=== PATIENT | male | born 1965 | race Caucasian/White ===

== ENCOUNTER 2021-07-05 07:20 | Inpatient (IN) | payer SELFPAY ==
[~2021-07-05] VITALS: Ht 170.2 cm; Wt 87.1 kg
[2021-07-05 07:27] VITALS: BP 155/120
[2021-07-05] MEDS ORDERED: KETOROLAC 30 MG/ML VIAL IM ONE (07:55)
[2021-07-05 10:16] LABS: HEMATOCRIT 49.6 % (36-52); HEMOGLOBIN 16.8 g/dL (12.0-18.0); MEAN CORPUSCULAR HEMOGLOBIN 31 pg (27-31); MEAN CORPUSCULAR HGB CONC 34 g/dL (33-37); MEAN CORPUSCULAR VOLUME 90.7 fL (80-94); PLATELET COUNT (AUTO) 337 K/uL (140-450); RED BLOOD CELL COUNT(AUTO) 5.47 MIL/uL (4.20-6.10); RED CELL DISTRIBUTION WIDTH 14.9 % (11.6-13.7); WHITE BLOOD COUNT (AUTO) 19.7 K/uL (4.8-10.8)
[2021-07-05 10:17] LABS: ALBUMIN 4.3 g/dL (3.4-5.0); ANION GAP 14.6 (8-16); CARBON DIOXIDE 24.7 mmol/L (21-32); POTASSIUM 4.3 mmol/L (3.5-5.1); TOTAL BILIRUBIN 1.6 mg/dL (0.0-1.0)
[2021-07-05 10:27] LABS: LYMPHOCYTES % (MANUAL) 5 % (20-46); MONOCYTES % (MANUAL) 5 % (5-12)
[2021-07-05 10:49] LABS: APPEARANCE,URINE CLOUDY (CLEAR); BILIRUBIN,URINE 1+ (NEGATIVE); BLOOD, URINE 2+ (NEGATIVE); COLOR,URINE YELLOW (YELLOW); LEUKOCYTE ESTERASE ,URINE NEGATIVE (NEGATIVE); NITRITE, URINE POSITIVE (NEGATIVE); PH,URINE 5.5 (5.0-9.0); UGLUCOSE NEGATIVE (NEGATIVE)
[2021-07-05 11:02] LABS: URINE AMORPHOUS URATE 2+ /HPF (None Seen); WBC,URINE 0-5 /HPF (0-5)
[2021-07-05] MEDS ORDERED: NACL 0.9% 2,000 ML IV ONE (11:10)
[2021-07-05] MEDS ORDERED: metroNIDAZOLE 500 MG/NS PREMIX 100 ML IV ONE ×2 (11:50→17:52)
[2021-07-05] MEDS ORDERED: NACL 0.9% 1,000 ML IV ONE (11:50)
[2021-07-05] MEDS ORDERED: ACETAMINOPHEN 325 MG TAB PO PRN (13:10)
[2021-07-05] MEDS ORDERED: ZOLPIDEM 5 MG TAB PO PRN (13:10)
[2021-07-05] MEDS ORDERED: DOCUSATE SODIUM 100 MG GELCAP PO PRN (13:10)
[2021-07-05] MEDS ORDERED: ONDANSETRON 4 MG/2 ML VIAL IM/IVP PRN (13:10)
[2021-07-05] MEDS ORDERED: POTASSIUM CHLORIDE 10 MEQ TABER PO PRN (13:10)
[2021-07-05] MEDS ORDERED: guaiFENesin DM 200/20 MG-10 ML 10 ML UDC PO PRN (13:10)
[2021-07-05] MEDS ORDERED: DEXT 5% /NACL 0.9% 1,000 ML IV SCH (13:10)
[2021-07-05 14:27] LABS: CHOL/HDL RATIO 2.3 (1-4.5); MAGNESIUM 2.1 mg/dL (1.8-2.4); PHOSPHORUS 3.6 mg/dL (2.5-4.9); THYROID STIMULATING HORMONE 1.36 uIU/mL (0.34-3.74)
[2021-07-05 15:41] LABS: FREE T4 (FREE THYROXINE) 0.99 ng/dL (0.76-1.46)
[2021-07-05] MEDS ORDERED: MORPHINE SULFATE 4 MG/ML SYR IVP ONE (16:00)
[2021-07-05] MEDS ORDERED: cefTRIAXone 1,000 MG VIAL ONE (16:17)
[2021-07-05] MEDS: HYDROcodone/APAP 7.5/325 MG 1 TAB PO PRN (17:57)
--- NOTE | 2021-07-05 19:20 | NUR ---
REPORT RECIEVED FROM CANDIE HERRMANN
--- NOTE | 2021-07-05 19:30 | NUR ---
55 Y/O MALE C/O SHARP RLQ PAIN X3 DAYS. DENIES DIARRHEA; SKIN IS PINK/WARM/DRY; AAOX4 WITH EVEN AND STEADY GAIT; LUNGS CLEAR BL; HR EVEN AND REGULAR; PT DENIES ANY FEVER, CP, SOB, OR COUGH AT THIS TIME; PATIENT STATES PAIN OF 8/10 AT THIS TIME; VSS; PATIENT POSITIONED FOR COMFORT; HOB ELEVATED; BEDRAILS UP X2; BED DOWN. ER MD MADE AWARE OF PT STATUS. NO PMH NKA DENIES MEDS
[2021-07-05 20:24] LABS: PROTHROMBIN TIME 10.5 secs (10.8-13.4)
[2021-07-05] MEDS: POLYETHYLENE GLYCOL 17 GM/PKT PO SCH (20:27)
--- NOTE | 2021-07-05 21:48 | NUR ---
RECIEVED CALL FROM RAVINDRA IN NUCLEAR [facility], PT IS SCHEDULED FOR HYDA SCAN APPROXIMATELY 0730 07/06/21. NPO AFTER MIDNIGHT; NO OPIATE 4 HRS PRIOR TO SCAN (0230). POC CELL
[2021-07-05] MEDS: metroNIDAZOLE 500 MG/NS PREMIX 100 ML IV SCH (22:23)
[2021-07-05] MEDS: SENNA 8.6 MG TAB PO SCH (22:24)
--- NOTE | 2021-07-06 01:47 | NUR ---
D5 1/2NS W/ KCl 10 MEQ HELD. LAST POTASSIUM VALUE 4.3 @0915; NO CURRENT VALUE, LABS NOTIFIED, NO REPLY AT THIS TIME.
[2021-07-06] MEDS: metroNIDAZOLE 500 MG/NS PREMIX 100 ML IV SCH ×3 (06:53→21:30)
--- NOTE | 2021-07-06 07:26 | NUR ---
REPORT GIVEN TO CANDIE HERRMANN
--- NOTE | 2021-07-06 07:28 | NUR ---
RECEIVED REPORT FROM CASI, MAINSPRING FORMER ARBOR END OF CARE AT THIS TIME.
--- NOTE | 2021-07-06 07:29 | NUR ---
PT TAKEN TO SCAN AT THIS TIME.
--- NOTE | 2021-07-06 07:29 | NUR ---
PT TAKEN TO NUCLEAR MED FOR HIDA SCAN
--- NOTE | 2021-07-06 07:50 | NUR ---
SPOKE WITH RAVINDRA, FOR MORPHINE 2MG IVP ONE TIME ORDER FOR PENDING SCAN TO HELP VISUALIZE GALLBLADDER. DR. ATWOOD PAGED.
[2021-07-06] MEDS ORDERED: MORPHINE SULFATE 2 MG/ML SYR IVP ONE (08:20)
[2021-07-06] MEDS ORDERED: MORPHINE SULFATE 2 MG/ML SYR ONE (08:22)
--- NOTE | 2021-07-06 08:39 | NUR ---
GAVE MORPHINE 2MG IVP ONE TIME PER DR. ATWOOD.
--- NOTE | 2021-07-06 09:10 | NUR ---
PT TAKEN TO ER BED 13 VIA W/C.
--- NOTE | 2021-07-06 09:22 | NUR ---
PATIENT HAS BEEN SCREENED AND CATEGORIZED MODERATE NUTRITION RISK. PATIENT WILL BE SEEN WITHIN 3-5 DAYS OF ADMISSION. 07/08/21-07/10/21 REVIEWED BY KY GONZ[address]
[2021-07-06] MEDS ORDERED: cefTRIAXone 1,000 MG VIAL ONE (09:30)
[2021-07-06 09:36] LABS: BASOPHILS # (AUTO) 0.1 K/uL (0.00-0.22); BASOPHILS % (AUTO) 0.3 % (0.0-2.0); EOSINOPHILS % (AUTO) 0.2 % (0.0-4.0); HEMATOCRIT 44.1 % (36-52); HEMOGLOBIN 14.8 g/dL (12.0-18.0); LYMPHOCYTES % (AUTO) 4.4 % (20.5-51.1); MEAN CORPUSCULAR HEMOGLOBIN 31 pg (27-31); MEAN CORPUSCULAR HGB CONC 34 g/dL (33-37); MEAN CORPUSCULAR VOLUME 91.5 fL (80-94); MONOCYTES # (AUTO) 1.6 K/uL (0.8-1.0); MONOCYTES % (AUTO) 6.8 % (1.7-9.3); NEUTROPHILS # (AUTO) 20.9 K/uL (1.8-7.7); NEUTROPHILS % (AUTO) 88.3 % (42.2-75.2); PLATELET COUNT (AUTO) 272 K/uL (140-450); RED BLOOD CELL COUNT(AUTO) 4.82 MIL/uL (4.20-6.10); RED CELL DISTRIBUTION WIDTH 14.9 % (11.6-13.7); WHITE BLOOD COUNT (AUTO) 23.7 K/uL (4.8-10.8)
[2021-07-06] MEDS: POLYETHYLENE GLYCOL 17 GM/PKT PO SCH ×3 (09:39→16:18)
[2021-07-06] MEDS: SENNA 8.6 MG TAB PO SCH ×3 (09:39→16:18)
[2021-07-06] MEDS: PANTOPRAZOLE 40 MG INJ VIAL IVP SCH (09:40)
[2021-07-06 09:58] LABS: CREATININE 0.8 mg/dL (0.6-1.3)
[2021-07-06] MEDS ORDERED: DILTIAZEM 25 MG/5 ML VIAL IVP ONE ×2 (10:00)
[2021-07-06] MEDS ORDERED: ADENOSINE 6 MG/2 ML VIAL IVP ONE ×2 (10:00)
--- NOTE | 2021-07-06 10:09 | NUR ---
GAVE REPORT TO MONTEZ SARAVIA FOR PENDING ADMISSION TO [facility].
--- NOTE | 2021-07-06 10:10 | NUR ---
Patient will be admitted to care of DR. ATWOOD. Admited to TELE. Will go to room 105A. Belongings list completed. Report to MONTEZ SARAVIA.
[2021-07-06 10:30] VITALS: BP 133/76
--- NOTE | 2021-07-06 10:30 | NUR ---
PT ARRIVED TO UNIT VIA GURNEY. AMBULATED TO BED STEADILY. A&OX4. ON RA WITH BREATHING UNLABORED. PT DENIES PAIN. SKIN IS WARM, DRY, AND INTACT. IV IS IN THE LEFT AC 20 GAUGE SALINE LOCKED. PT IS STABLE. PLAN OF CARE DISCUSSED.
[2021-07-06] MEDS: HYDROcodone/APAP 7.5/325 MG 1 TAB PO PRN ×2 (10:50→21:34)
[2021-07-06] MEDS: POTASSIUM CHL 10 MEQ/D5-1/2NS 1,000 ML IV SCH ×3 (10:50→15:09)
--- NOTE | 2021-07-06 10:52 | NUR ---
PT WAS GIVEN NORCO FOR PAIN. PAIN WAS STATED AT A 6/10 IN THE RIGHT UPPER QUAD. WILL CONTINUE TO MONITOR FOR PAIN.
[2021-07-06 12:00] VITALS: BP 125/87
--- NOTE | 2021-07-06 13:00 | NUR ---
, DARREL, CALLED AND RECEIVED UPDATE ON PT. SHE ALSO SPOKE WITH PT ON THE PHONE. PT IS STABLE AT THIS TIME. NO DISTRESS NOTED.
--- NOTE | 2021-07-06 15:00 | NUR ---
ROUNDED ON PT. HE IS AWAKE AND ANSWERING QUESTIONS APPROPRIATELY. DENIES PAIN. PT HAS NOT HAD A BM YET. DENIES NAUSEA/VOMITING. PT IS STABLE.
[2021-07-06 16:00] VITALS: BP 145/94
--- NOTE | 2021-07-06 17:23 | NUR ---
PT IS ASLEEP. NO DISTRESS NOTED. IV FLUIDS ARE INFUSING ORDERED. WILL CONTINUE TO MONITOR.
--- NOTE | 2021-07-06 19:30 | NUR ---
ENDORSED PT TO CABLE MECHANIC NURSE FOR CONTINUITY OF CARE. PT IS STABLE. PLAN OF CARE DISCUSSED.
[2021-07-06 20:00] VITALS: BP 140/88
[2021-07-07] VITALS: BP 142/84
[2021-07-07 04:00] VITALS: BP 138/78
[2021-07-07] MEDS: POTASSIUM CHL 10 MEQ/D5-1/2NS 1,000 ML IV SCH ×2 (06:56→16:54)
[2021-07-07] MEDS: metroNIDAZOLE 500 MG/NS PREMIX 100 ML IV SCH ×3 (06:57→20:45)
--- NOTE | 2021-07-07 07:15 | NUR ---
RECEIVED BEDSIDE REPORT FROM MANAGER EMERGENCY NURSE FOR CONTINUITY OF CARE. PT IS AWAKE AND ALERT. A&OX4. ON RA WITH BREATHING UNLABORED. AMBULATORY INDEPENDENTLY. SKIN IS WARM, DRY, AND INTACT. IV IS IN THE LEFT AC 20 GAUGE RUNNING FLUIDS ORDERED. PT IS STABLE. PLAN OF CARE DISCUSSED. PT DENIES PAIN.
[2021-07-07 07:34] LABS: BASOPHILS # (AUTO) 0.1 K/uL (0.00-0.22); BASOPHILS % (AUTO) 0.3 % (0.0-2.0); EOSINOPHILS # (AUTO) 0.2 K/uL (0-0.4); EOSINOPHILS % (AUTO) 0.9 % (0.0-4.0); HEMOGLOBIN 13.5 g/dL (12.0-18.0); LYMPHOCYTES # (AUTO) 1.1 K/uL (2.0-11.5); MEAN CORPUSCULAR HEMOGLOBIN 30 pg (27-31); MEAN CORPUSCULAR HGB CONC 33 g/dL (33-37); MEAN CORPUSCULAR VOLUME 92.1 fL (80-94); MONOCYTES # (AUTO) 1.2 K/uL (0.8-1.0); MONOCYTES % (AUTO) 6.7 % (1.7-9.3); NEUTROPHILS # (AUTO) 15.4 K/uL (1.8-7.7); NEUTROPHILS % (AUTO) 86.1 % (42.2-75.2); PLATELET COUNT (AUTO) 280 K/uL (140-450); RED BLOOD CELL COUNT(AUTO) 4.45 MIL/uL (4.20-6.10); RED CELL DISTRIBUTION WIDTH 14.9 % (11.6-13.7); WHITE BLOOD COUNT (AUTO) 17.9 K/uL (4.8-10.8)
[2021-07-07] MEDS ORDERED: fentaNYL citrate 0.05 MG/ML VIAL ONE (07:36)
[2021-07-07] MEDS ORDERED: MIDAZOLAM 2 MG/2 ML VIAL ONE (07:36)
[2021-07-07] MEDS ORDERED: SUCCINYLCHOLINE CHLORIDE 200 MG/10 ML VIAL IVP ONE (07:37)
[2021-07-07] MEDS ORDERED: PROPOFOL 200 MG/20 ML VIAL IV ONE (07:37)
[2021-07-07] MEDS ORDERED: LIDOCAINE 1% 500 MG/50 ML VIAL ONE (07:47)
[2021-07-07] MEDS ORDERED: BUPIVACAINE-MPF/EPI 0.25% 30 ML VIAL INJ ONE (07:47)
[2021-07-07 07:59] LABS: ANION GAP 13.9 (8-16); CREATININE 0.7 mg/dL (0.6-1.3); POTASSIUM 3.9 mmol/L (3.5-5.1)
--- NOTE | 2021-07-07 08:03 | NUR ---
PT WAS PICKED UP BY TWO OR NURSES TO BE TAKEN TO THE OR FOR PROCEDURE. SURGEON HAS NOT SPOKEN WITH PT YET STATED BY PT. INFORMED HIM THAT HE WILL SPEAK WITH HIM PRIOR TO PROCEDURE AND SIGN CONSENT.
[2021-07-07 08:07] LABS: T4 (THYROXINE) 6.3 ug/dL (4.5-12.0)
[2021-07-07] MEDS ORDERED: LACTATED RINGERS 1,000 ML IV SCH (08:15)
[2021-07-07] MEDS ORDERED: diphenhydrAMINE 50 MG/ML VIAL IVP PRN ×2 (08:15→11:05)
[2021-07-07] MEDS ORDERED: HYDROmorphone 1 MG/ML AMP IVP PRN ×3 (08:15→11:05)
[2021-07-07] MEDS ORDERED: MEPERIDINE 25 MG/ML SYR IVP PRN ×2 (08:15→11:05)
[2021-07-07] MEDS ORDERED: ONDANSETRON 4 MG/2 ML VIAL IVP PRN ×2 (08:15→11:05)
[2021-07-07] MEDS ORDERED: SEVOFLURANE 250 ML BTL INH ONE (08:45)
[2021-07-07] MEDS ORDERED: ROCURONIUM 50 MG/5 ML VIAL IV ONE (09:04)
[2021-07-07] MEDS ORDERED: PHENYLEPHRINE 10 MG/ML VIAL ONE (09:08)
[2021-07-07] MEDS ORDERED: SUGAMMADEX SODIUM 200 MG/2 ML VIAL IV ONE (10:11)
[2021-07-07] MEDS ORDERED: MEPERIDINE 50 MG/ML SYR ONE (10:14)
[2021-07-07] MEDS ORDERED: LABETALOL 100 MG/20 ML VIAL ONE (11:03)
[2021-07-07] MEDS ORDERED: HYDROmorphone PFS 2 MG/ML SYR ONE (11:04)
[2021-07-07] MEDS ORDERED: LABETALOL 100 MG/20 ML VIAL IV PRN (11:05)
[2021-07-07] MEDS ORDERED: LABETALOL 100 MG/20 ML VIAL IVP ONE ×2 (11:05→11:15)
[2021-07-07] MEDS: LACTATED RINGERS 1,000 ML IV SCH ×2 (11:05→19:25)
[2021-07-07] MEDS ORDERED: HYDROmorphone PFS 2 MG/ML SYR IVP ONE ×3 (11:08→11:28)
--- NOTE | 2021-07-07 11:21 | NUR ---
DR. WHITTINGTON CALLED AND ALL QUESTIONS ANSWERED ABOUT PT. INFORMATION PROVIDED ABOUT CONDITION AND STATUS IN SURGERY FOR LAP CHOLEY.
[2021-07-07] MEDS: ACETAMINOPHEN EXTRA STRENGTH 500 MG TAB PO SCH ×4 (11:30→20:45)
--- NOTE | 2021-07-07 11:45 | NUR ---
PT ARRIVED BACK FROM THE OR WITH ONE OR NURSE ERIKA. PT IS STABLE. VS ARE STABLE. 4 INCISIONS WITH ONE CANDIE DRAIN IN PLACE. CANDIE DRAIN HAS SEROSANGUINEOUS FLUID. PT DENIES PAIN. WILL CONTINUE TO MONITOR PER PROTOCOL.
[2021-07-07 12:00] VITALS: BP 118/75
[2021-07-07] MEDS: POLYETHYLENE GLYCOL 17 GM/PKT PO SCH ×3 (12:12→17:19)
[2021-07-07] MEDS: PANTOPRAZOLE 40 MG INJ VIAL IVP SCH (12:12)
[2021-07-07] MEDS: SENNA 8.6 MG TAB PO SCH ×3 (12:13→17:19)
--- NOTE | 2021-07-07 12:23 | NUR ---
CALLED DARREL, , REQUESTED BY PT. INFORMED HER OF THE SURGERY AND THAT THE PT IS NOW IN RECOVERY. ALL QUESTIONS ANSWERED. WILL CALL BACK IN A COUPLE HOURS WHEN PT IS AWAKE TO TALK TO HIM.
[2021-07-07] MEDS: KETOROLAC 15 MG/ML VIAL IVP SCH ×2 (12:36→17:19)
[2021-07-07] MEDS: GABAPENTIN 300 MG CAP PO SCH ×2 (12:36→17:19)
--- NOTE | 2021-07-07 13:27 | NUR ---
POST OP VITAL SIGNS COMPLETE. PT IS STABLE. VS ARE STABLE. O2 SAT IS 92% ON RA. PT DENIES PAIN. WILL CONTINUE TO MONITOR.
--- NOTE | 2021-07-07 15:31 | NUR ---
ROUNDED ON PT. HE DENIES PAIN AT THIS TIME. HE IS AWAKE AND LAYING IN SEMI FOWLERS POSITION. ON RA WITH BREATHING UNLABORED. DRAIN IS INTACT EXPELLING SEROSANGUINEOUS FLUID. IV IS PATENT AND INTACT INFUSING FLUIDS. WILL CONTINUE TO MONITOR.
[2021-07-07 16:00] VITALS: BP 101/69
--- NOTE | 2021-07-07 17:56 | NUR ---
PT AMBULATED FOR THE FIRST TIME SINCE THE LAP CHOLEY PROCEDURE. AMBULATED STEADILY. STATES PAIN TOLERABLE AT A SCALE OF 3/10. PT IS BACK IN BED AND STABLE. WILL CONTINUE TO MONITOR.
--- NOTE | 2021-07-07 19:10 | NUR ---
ENDORSED PT TO CHICKEN PICKER NURSE FOR CONTINUITY OF CARE. PT IS STABLE. PLAN OF CARE DISCUSSED.
[2021-07-07 20:00] VITALS: BP 118/76
--- NOTE | 2021-07-07 20:37 | NUR ---
RECEIVED REPORT FROM AM NURSE. PATIENT IS AWAKE, ALERT RESTING COMFORTABLY IN BED. NO ACUTE DISTRESS NOTED. ON ROOM AIR. SAFETY MEASURES IN PLACE. NO COMPLAINTS OF PAIN AT THIS TIME. CALL LIGHT WITHIN REACH.
--- NOTE | 2021-07-07 20:45 | NUR ---
ADMINISTERED SCHEDULED 2100 MEDS ORDERED BY . TOLERATED WELL.
[2021-07-08] VITALS: BP 121/80
[2021-07-08] MEDS: KETOROLAC 15 MG/ML VIAL IVP SCH ×3 (00:03→11:48)
[2021-07-08] MEDS: LACTATED RINGERS 1,000 ML IV SCH (03:45)
[2021-07-08 04:00] VITALS: BP 153/96
[2021-07-08] MEDS: metroNIDAZOLE 500 MG/NS PREMIX 100 ML IV SCH (05:43)
[2021-07-08] MEDS: POTASSIUM CHL 10 MEQ/D5-1/2NS 1,000 ML IV SCH (05:47)
[2021-07-08 07:30] LABS: BASOPHILS % (AUTO) 0.4 % (0.0-2.0); EOSINOPHILS # (AUTO) 0.2 K/uL (0-0.4); EOSINOPHILS % (AUTO) 1.7 % (0.0-4.0); HEMATOCRIT 35.9 % (36-52); HEMOGLOBIN 11.9 g/dL (12.0-18.0); LYMPHOCYTES % (AUTO) 10.5 % (20.5-51.1); MEAN CORPUSCULAR HEMOGLOBIN 31 pg (27-31); MEAN CORPUSCULAR HGB CONC 33 g/dL (33-37); MONOCYTES # (AUTO) 0.8 K/uL (0.8-1.0); MONOCYTES % (AUTO) 8.6 % (1.7-9.3); NEUTROPHILS # (AUTO) 7.6 K/uL (1.8-7.7); NEUTROPHILS % (AUTO) 78.8 % (42.2-75.2); PLATELET COUNT (AUTO) 287 K/uL (140-450); RED BLOOD CELL COUNT(AUTO) 3.86 MIL/uL (4.20-6.10); RED CELL DISTRIBUTION WIDTH 15.1 % (11.6-13.7); WHITE BLOOD COUNT (AUTO) 9.7 K/uL (4.8-10.8)
--- NOTE | 2021-07-08 07:40 | NUR ---
RECEIVED BEDSIDE REPORT FROM RADIATION ONCOLOGY MANAGER NURSE FOR CONTINUITY OF CARE. PT IS AWAKE AND ALERT. A&OX4. ON RA WITH BREATHING UNLABORED. AMBULATORY INDEPENDENTLY. SKIN IS WARM, DRY, AND NON INTACT. S/P LAP CHOLECYSTECTOMY. NOTED INCISIONS ON ABD SEALED WITH DERMABOND. IV IS IN THE LEFT AC 20 GAUGE RUNNING FLUIDS ORDERED. PT IS STABLE. PLAN OF CARE DISCUSSED. PT DENIES PAIN. SAFETY PRECAUTIONS IN PLACE. CALL LIGHT WITHIN REACH. WILL CONTINUE TO MONITOR.
--- NOTE | 2021-07-08 07:43 | NUR ---
ENDORSED PATIENT TO AM NURSE FOR CONTINUITY OF CARE. PT IS AWAKE, ALERT NO SOB NOTED.
[2021-07-08 07:46] LABS: ANION GAP 10.4 (8-16); CARBON DIOXIDE 30.4 mmol/L (21-32); CREATININE 0.7 mg/dL (0.6-1.3); POTASSIUM 3.8 mmol/L (3.5-5.1)
[2021-07-08 08:00] VITALS: BP 151/88
[2021-07-08] MEDS: POLYETHYLENE GLYCOL 17 GM/PKT PO SCH (08:25)
[2021-07-08] MEDS: ACETAMINOPHEN EXTRA STRENGTH 500 MG TAB PO SCH ×2 (08:25→11:48)
[2021-07-08] MEDS: PANTOPRAZOLE 40 MG INJ VIAL IVP SCH (08:25)
[2021-07-08] MEDS: GABAPENTIN 300 MG CAP PO SCH (08:33)
[2021-07-08] MEDS: SENNA 8.6 MG TAB PO SCH (08:56)
[2021-07-08] MEDS ORDERED: ENOXAPARIN 40 MG/0.4 ML SYR SUBQ SCH (09:00)
--- NOTE | 2021-07-08 09:00 | NUR ---
DR. PADILLA AT PATIENT'S BEDSIDE REMOVING CANDIE DRAIN.
[2021-07-08] MEDS ORDERED: ACET-9525 PO (10:28)
[2021-07-08 12:00] VITALS: BP 145/91
[2021-07-08 12:21] VITALS: BP 145/91
--- NOTE | 2021-07-08 12:45 | NUR ---
ENDORSED DISCHARGE INSTRUCTIONS TO PATIENT. PT VERBALIZED UNDERSTANDING AND SIGNED DISCHARGE FORMS.
--- NOTE | 2021-07-08 13:07 | NUR ---
PATIENT DISCHARGED OFF THE UNIT. IV AND ID WRISTBAND REMOVED. ESCORTED PATIENT TO THE FRONT LOBBY. PT WAS STABLE PRIOR TO DISCHARGE.
== END 2021-07-08 13:10 | disposition home or self-care (01) | DRG 853 ==
LOC: MED 07:20 → MTU 13:10
PROVIDERS: ADMIT Family Medicine; ATTEND Family Medicine
PROC: 0FT44ZZ Resection of Gallbladder, Percutaneous Endoscopic Approach (ICD-10-PCS; principal; 2021-07-07 08:15)
DX: A41.9 Sepsis, unspecified organism (principal); G93.41 Metabolic encephalopathy; E87.1 Hypo-osmolality and hyponatremia; K81.0 Acute cholecystitis; K82.A2 Perforation of gallbladder in cholecystitis; R73.9 Hyperglycemia, unspecified; E86.0 Dehydration; K59.00 Constipation, unspecified; K52.9 Noninfective gastroenteritis and colitis, unspecified; Z20.822 Contact with and (suspected) exposure to COVID-19; K82.A1 Gangrene of gallbladder in cholecystitis; K82.8 Other specified diseases of gallbladder
CPT/HCPCS: 36415; 71045; 76705; 78445; 80048; 80053; 81001; 82150; 83036; 83605; 83690; 83735; 83880; 84100; 84436; 84439; 84443; 84479; 84484; 85025; 85610; 85730; 87040; 87081; 93005; 96365; 96367; 96372; 96375; 99285; A9510; C9113; J0330; J0696; J1170; J1650; J1885; J2001; J2175; J2250; J2270; J2370; J2704; J3010; J3490; J7030; J7060; J7120; Q0092